=== PATIENT | female | born 1970 | race Caucasian/White ===

== ENCOUNTER → 2023-09-22 | Outpatient (REF) | payer BC, SELFPAY | LOC: DHSLP | PROVIDERS: ATTENDING PHYSICIAN Internal Medicine Cardiovascular Disease; FAMILY PHYSICIAN Internal Medicine | DX: G47.19 Other hypersomnia (principal); R06.83 Snoring | CPT/HCPCS: 95800 ==

== ENCOUNTER → 2023-10-18 12:53 | Outpatient (REF) | payer BC, SELFPAY | LOC: RCS 12:53 | PROVIDERS: ATTENDING PHYSICIAN Internal Medicine Cardiovascular Disease; FAMILY PHYSICIAN Internal Medicine | DX: I48.0 Paroxysmal atrial fibrillation (principal) | CPT/HCPCS: 93017; 93350 ==

== ENCOUNTER 2023-10-23 06:00 | Day surgery (SDC) | payer BC, SELFPAY ==
[2023-10-03 13:29] VITALS: BMI 29.6
[2023-10-03 13:55] LABS: % Basophils 0.8 % (0-2); % Eosinophils 1.1 % (0-6); % Immature Granulocytes 0.3 % (0-0.5); % Lymphocytes 34.2 % (20.5-51.1); % Monocytes 7.4 % (1.7-9.3); % Neutrophils 56.2 % (42.2-75.2); Absolute Basophils 0.1 10^3/uL (0-0.2); Absolute Eosinophils 0.1 10^3/uL (0-0.7); Absolute Lymphocytes 2.4 10^3/uL (1.2-3.4); Absolute Monocytes 0.5 10^3/uL (0.1-0.6); Hematocrit 41.8 % (37.0-47.0); Hemoglobin 14.7 g/dL (12.0-16.0); Mean Corp Hgb Conc. 35.2 g/dL (33.0-37.0); Mean Corpuscular Hgb 31.8 pg (27.0-31.0); Mean Corpuscular Volume 90.5 fL (81.0-99.0); Mean Platelet Volume 11.5 fL (7.4-10.4); Nucleated Red Blood Cells % 0 %; Platelet Count 198 10^3/uL (130-400); Red Blood Cell Count 4.62 10^6/uL (4.20-5.40); Red Cell Dist. Width 12.3 % (11.5-14.5); White Blood Cell Count 7.1 10^3/uL (4.8-10.8)
[2023-10-03 14:03] LABS: ALT (SGPT) 30 U/L (0-35); AST (SGOT) 30 U/L (14-36); Albumin 4.2 g/dl (3.5-5.0); Alkaline Phosphatase 90 U/L (38-126); Blood Urea Nitrogen 22 mg/dl (7-17); Calcium 9.5 mg/dl (8.4-10.2); Carbon Dioxide 27 mmol/L (22-30); Chloride 100 mmol/L (98-107); Estimated Creatinine Clearance 112 ml/min; Glucose 90 mg/dl (70-99); Potassium 4.2 mmol/L (3.5-5.1); Sodium 137 mmol/L (135-145); Total Bilirubin 1.1 mg/dl (0.2-1.3); Total Protein 6.7 g/dl (6.3-8.2); eGFR > 60.00
[2023-10-03 14:10] LABS: INR 1.05; PT 13.5 Sec (11.4-14.6)
[2023-10-23] VITALS (17 sets, daily range): BP systolic 93–118; BP diastolic 58–82; BMI 29.3
[2023-10-23 06:39] LABS: HCG, Urine Qualitative Screen Negative
[2023-10-23 09:18] LABS: ACT-LR - POC 260 Seconds (116-155)
[2023-10-23 09:38] LABS: ACT-LR - POC 334 Seconds (116-155)
--- NOTE | 2023-10-23 11:15 | PTCARENOTE ---
Pt c/o chest burning/ tightness rated 4/10. EKG complete. Dr Warner made aware and in to evaluate pt and pt's EKG. Dr Warner states he will order pain med for pt. Awaiting orders and will administer meds to pt. Will continue to monitor.
[2023-10-23] MEDS: MORPHINE SULFATE 2 MG IV (11:22)
--- NOTE | 2023-10-23 11:29 | ITS.CL.ABL ---
[facility] - Ablation
Ablation
Procedure Report:
ELECTROPHYSIOLOGIC STUDY AND POSSIBLE ABLATION
DATE: October 23, 2023
Primary Care Provider: Dr. Jacob Pina
Primary bath house attendant: Dr. Bhumika Ballesteros
Fixer Supervisor: Twin Laird M.D.
INDICATION:
Symptomatic Atrial Fibrillation.
Paroxysmal
HISTORY: See H and P.
Symptomatic AF, poorly controlled with attempted medical therapy
HAS-BLED: 0
CHADSVASc: 1 (Female)
PRESENTING RHYTHM: SR
ANTIARRHYTHMIC DRUG: Metoprolol
ANTICOAGULATION: Eliquis
'TIME-OUT': called and confirmed.
SEDATION/ANESTHESIA: provided via the anesthesia department using general anesthesia.
INTRAVENOUS/ARTERIAL ACCESS:
Right femoral venous - 8Fr ( up-sized for Arctic Front Flex Sheath - 15 Fr)
Left femoral venous - 7 Fr, 10 Fr,
PROCEDURE:
Ultrasound Guidance performed by in was utilized for femoral venous Vascular Access b/l.
A decapolar CS catheter was placed within the CS for mapping and pacing.
The intracardiac ultrasound catheter was positioned in the RA. No DAYANA clot was seen and the LA/PV anatomy was defined. ICE was also used to identify the FO/IAS for targeting of transseptal puncture, assist in identification of the pulmonary vein
ostia, monitoring for PV ostial balloon occlusion using Doppler flow, and to monitor for mechanical injury.
Heparin bolus was administered prior to the transseptal puncture. Transeptal puncture was completed while monitoring intracardiac ultrasound, fluoroscopy and tip pressure. Left atrial catheter position was confirmed by pressure monitoring (RA mean
pressure 8 mm Hg and LA mean pressure 12 mm Hg), as well as fluoroscopy. The sheath was advanced over the dilator and positioned in the left atrium. Heparin was infused to target ACT at 300 -400 seconds throughout the case.
The multi-pole ring mapping catheter was positioned through the sheath into the LA and then the PV ostia were mapped. The 3-D electroanatomical map was created using [employer]. A 3-D reconstructed CT image was compared to the 3-D map to assist in
anatomic interpretation, mapping and ablation. Cryothermal energy was utilized for PV isolation to electrically isolate each PV ostia using the 28 mm Arctic Front balloon. All PVPs were eliminated at each vein demonstrating entrance block.
Therefore independent pulmonary veins, left superior, left inferior, right superior, right inferior.
An esophageal temperature probe was positioned at the level of the mid LA to delineate the course of the esophagus as well as monitor for any significant temperature changes during ablation. And no time was there any significant change in luminal
esophageal temperature during energy delivery.
The right phrenic nerve was continuously paced above the level of the R PVs via the SVC decapolar catheter during all right-sided cryo-application. Diaphragmatic CMAP was continuously monitored.
At no point was there any reduction in or loss of diaphragmatic contraction
Pacing from the multi-pole ring catheter (Achieve) in SR around the circumference of the ostia was performed at 10 ma and 2.0 msec output to assess for exit block. Full isolation (entrance and exit) was achieved. Prior to withdraw of catheters,
mapping with the multi-pole ring catheter was repeated at each PV ostia to assess for any 're connect', none was observed.
I.C.E. :
Pre-Ablation Post-Ablation
LVEF: 55 % 55 %
WMA: none none
Pericardial effusion: none none
COMPLICATIONS:
None
SUMMARY:
- Mapping and ablation to isolate the PVs
- 3-D Electroanatomical Mapping
- Intracardiac Ultrasound
- Ultrasound Guidance for Vascular Access.
Post ablation, I discussed today's findings and results with the patient's , Ed.
RECOMMENDATIONS:
- Observe in monitored bed.
- Maintain oral anticoagulation for at least 3 months post ablation.
- Continue metoprolol
- Office visit with Dr Ballesteros in 3 months.
Copy to:
Dr. Jacob Pina
Dr. Bhumika Ballesteros
[2023-10-23] MEDS: ANESTHETIC LOZENGE 1 LOZENGE PO (12:55)
[2023-10-23] MEDS: TYLENOL 1000 MG PO (13:26)
--- NOTE | 2023-10-23 14:23 | W.PN.UPDATE ---
Update Note
Progress Note Update
Pt seen post PVI. Bilat groin sites without ht/bleeding, non tender. OOB to chair, steady gait. Post EKG NSR 80s, no acute changes. Resume eliquis tonight, continue metoprolol xl as before. Mild chest discomfort post procedure, good relief with
tylenol. Followup with Dr. Ballesteros as scheduled. Home today if groin sites/tele remain stable.
== END 2023-10-23 13:37 | disposition home or self-care (01) ==
LOC: CATH 06:00
PROVIDERS: ATTENDING PHYSICIAN Internal Medicine Cardiovascular Disease; FAMILY PHYSICIAN Internal Medicine; OTHER PHYSICIAN Internal Medicine Cardiovascular Disease
DX: I48.0 Paroxysmal atrial fibrillation (principal); I47.19 Other supraventricular tachycardia; Z86.16 Personal history of COVID-19; E78.5 Hyperlipidemia, unspecified; Z79.01 Long term (current) use of anticoagulants
CPT/HCPCS: C1766; C1893; C1894; C1769; C1730; C1733; C1892; 36415; 75572; 76937; 80053; 81025; 83735; 85025; 85347; 85610; 86850; 86900; 86901; 93005; 93656; C1760; Q9967

== ENCOUNTER → 2024-04-03 14:57 | Outpatient (REF) | payer BC, SELFPAY | LOC: HWWDC 14:57 | PROVIDERS: ATTENDING PHYSICIAN Obstetrics & Gynecology Gynecology; FAMILY PHYSICIAN Internal Medicine | DX: Z12.31 Encounter for screening mammogram for malignant neoplasm of breast (principal) | CPT/HCPCS: 77063; 77067 ==

== ENCOUNTER → 2024-04-18 13:47 | Outpatient (REF) | payer BC, SELFPAY | LOC: HWRAD 13:47 | PROVIDERS: ATTENDING PHYSICIAN Nurse Practitioner Adult Health; FAMILY PHYSICIAN Internal Medicine | DX: N95.0 Postmenopausal bleeding (principal) | CPT/HCPCS: 76830; 76856 ==

== ENCOUNTER → 2025-04-18 12:27 | Outpatient (REF) | payer BC, SELFPAY | LOC: HWWDC 12:27 | PROVIDERS: ATTENDING PHYSICIAN Obstetrics & Gynecology Gynecology; FAMILY PHYSICIAN Internal Medicine | DX: Z12.31 Encounter for screening mammogram for malignant neoplasm of breast (principal) | CPT/HCPCS: 77063; 77067 ==